=== PATIENT | male | born 1980 | race Hispanic/Latino ===

== ENCOUNTER 2018-08-27 16:30 | Emergency (ER) | payer OTHER ==
[2018-08-27] MEDS ORDERED: LIDOCAINE 5% TOPICAL PATCH TP ONE (17:16)
[2018-08-27] MEDS ORDERED: CYCLOBENZAPRINE HCL 10 MG TABLET ONE (17:17)
[2018-08-27] MEDS ORDERED: IBUPROFEN 600 MG TABLET ONE (17:17)
== END 2018-08-27 17:25 | disposition home or self-care (01) ==
LOC: EDH 16:30
DX: S39.012A Strain of muscle, fascia and tendon of lower back, initial encounter (principal); S43.401A Unspecified sprain of right shoulder joint, initial encounter; V49.49XA Driver injured in collision with other motor vehicles in traffic accident, initial encounter; Y93.89 Activity, other specified; Y92.410 Unspecified street and highway as the place of occurrence of the external cause; Y99.8 Other external cause status

== ENCOUNTER 2020-04-06 09:01 | Emergency (ER) | payer SELFPAY ==
[2020-04-06 09:54] LABS: APPEARANCE,URINE Clear (CLEAR); BILIRUBIN,URINE Negative (NEGATIVE); COLOR,URINE Yellow (YELLOW); GLUCOSE, URINE (UA) >=1000 mg/dL (NEGATIVE); KETONES,URINE Negative (NEGATIVE); LEUKOCYTE ESTERASE ,URINE Negative (NEGATIVE); NITRATE,URINE Negative (NEGATIVE); OCCULT BLOOD,URINE Nonhemolyzed Trace (NEGATIVE); PH,URINE 5.5 (5.0-8.0); PROTEIN,URINE Trace mg/dL (NEGATIVE)
[2020-04-06 10:06] LABS: WBC,URINE 0-1 /HPF (0-1)
[2020-04-06 10:07] LABS: BACTERIA,URINE Rare /HPF (None Seen); HYALINE CASTS, URINE 0-1 /LPF (0-1 /LPF); MUCUS,URINE Few LPF (None Seen); SQUAMOUS EPITHELIAL CELL,UR 0-2 /HPF (0-2)
== END 2020-04-06 10:16 | disposition home or self-care (01) ==
LOC: EDH 09:01
DX: N48.1 Balanitis (principal); R03.0 Elevated blood-pressure reading, without diagnosis of hypertension; E66.01 Morbid (severe) obesity due to excess calories; E08.9 Diabetes mellitus due to underlying condition without complications; Z72.0 Tobacco use
CPT/HCPCS: 81001; 82948